=== PATIENT | male | born 1955 | race Caucasian/White ===

== ENCOUNTER 2016-08-17 11:32 | Emergency (ER) | payer BC, OTHER ==
[~2016-08-17] VITALS: Ht 167.6 cm; Wt 84.6 kg
[~2016-08-17 11:32] MED LIST: AMBIEN10 MG PO; CLOPIDOGREL75 MG PO; LIPITOR40 MG PO; LO-DOSE ASPIRIN81 M2 PO; NICOTINE PATCH1 EAC2 TD; NITROSTAT0.4 MG SL; PERCOCET 5/31 TABLET PO; XANAX0.25 MG PO
[2016-08-17 12:11] LABS: MCH 34.4 PG (29.0-34.0); MCHC 35.9 G/DL (30.0-36.0); MCV 95.9 FL (86-99); MEAN PLAT.VOLUME 10.8 uM^3 (9.0-12.4); PLATELET COUNT 145 K/uL (156-360); RBC DIS.WIDTH-CV 12.8 % (11.8-14.6); RBC DIS.WIDTH-SD 43.2 % (39-53); RED BLOOD COUNT 4.59 M/uL (4.00-5.50); WHITE BLOOD COUNT 5.7 K/uL (4.1-10.2)
[2016-08-17 12:22] LABS: CHLORIDE 108 mEq/L (99-109); POTASSIUM 4.1 mEq/L (3.7-5.4); SODIUM 142 mEq/L (136-147)
[2016-08-17 12:24] LABS: GLUCOSE 115 mg/dL (70-99)
[2016-08-17 12:25] LABS: ANION GAP 9 MEQ/L (2-14)
[2016-08-17 12:28] LABS: GFR ESTIMATE (CALCULATED) > 59 mL/min/
[2016-08-17 12:29] LABS: UREA NITROGEN (BUN) 20 mg/dL (9-23)
[2016-08-17 12:33] LABS: TROP-I INTERPRETATION NEGATIVE; TROPONIN-I 0.07 ng/mL (0.0-0.30)
[2016-08-17 14:59] VITALS: BP 128/67
== END 2016-08-17 15:01 | disposition home or self-care (01) ==
LOC: EME 11:32
DX: R07.9 Chest pain, unspecified (principal); Z53.20 Procedure and treatment not carried out because of patient's decision for unspecified reasons; E11.65 Type 2 diabetes mellitus with hyperglycemia; D69.6 Thrombocytopenia, unspecified; I10 Essential (primary) hypertension; J44.9 Chronic obstructive pulmonary disease, unspecified; J43.9 Emphysema, unspecified; I25.10 Atherosclerotic heart disease of native coronary artery without angina pectoris; F17.200 Nicotine dependence, unspecified, uncomplicated; Z79.82 Long term (current) use of aspirin; Z95.5 Presence of coronary angioplasty implant and graft; Z88.0 Allergy status to penicillin; Z88.1 Allergy status to other antibiotic agents
CPT/HCPCS: 71020; 80048; 84484; 85027; 93005; 99281; 99283

== ENCOUNTER 2017-10-07 11:57 | Inpatient (IN) | payer BC, OTHER ==
[~2017-10-07] VITALS: Ht 167.6 cm; Wt 85.2 kg
[2017-10-07 12:22] LABS: HEMATOCRIT 43.4 % (38.0-50.0); HEMOGLOBIN 15.5 G/DL (12.5-16.6); MCH 34.4 PG (29.0-34.0); MCHC 35.7 G/DL (30.0-36.0); MCV 96.2 FL (86-99); PLATELET COUNT 97 K/uL (156-360); RBC DIS.WIDTH-CV 12.7 % (11.8-14.6); RBC DIS.WIDTH-SD 45.4 % (39-53); RED BLOOD COUNT 4.51 M/uL (4.00-5.50); WHITE BLOOD COUNT 6.6 K/uL (4.1-10.2)
[2017-10-07 12:38] LABS: CHLORIDE 102 mEq/L (99-109); POTASSIUM 3.9 mEq/L (3.7-5.4); SODIUM 134 mEq/L (136-147)
[2017-10-07 12:40] LABS: GLUCOSE 113 mg/dL (70-99)
[2017-10-07 12:44] LABS: CREATININE 0.8 mg/dL (0.6-1.3); GFR ESTIMATE (CALCULATED) > 59 mL/min/ (58.99-99999)
[2017-10-07 12:45] LABS: UREA NITROGEN (BUN) 19 mg/dL (9-23)
[2017-10-07] MEDS ORDERED: PERCOCET 5/31 TABLET PO (15:22)
[2017-10-07] MEDS ORDERED: PAROXETINE HCL10 MG PO (15:23)
[2017-10-07] MEDS ORDERED: ZOLPIDEM TARTRA10 MG PO (15:23)
[2017-10-07] MEDS ORDERED: BUSPAR10 MG PO (15:23)
[2017-10-07] MEDS ORDERED: DUONEB 2.5-0.5 M3 ML AEROSOL (15:24)
[2017-10-07] MEDS ORDERED: IMDUR30 MG PO (15:24)
[2017-10-07 19:27] VITALS: BP 141/85
[2017-10-07 23:02] VITALS: BP 129/73
[2017-10-08 04:00] VITALS: BP 131/72
[2017-10-08 06:23] LABS: BASOPHIL (%) 0 % (0-1); EOSINOPHIL (%) 0 % (0-5); HEMATOCRIT 40.7 % (38.0-50.0); HEMOGLOBIN 13.9 G/DL (12.5-16.6); IMMATURE GRANULOCYTE (%) 0.6 % (0.0-0.7); LYMPHOCYTE (%) 11.9 % (15-42); LYMPHOCYTE COUNT 0.6 K/uL (1.0-2.8); MCH 33.1 PG (29.0-34.0); MCHC 34.2 G/DL (30.0-36.0); MCV 96.9 FL (86-99); MONOCYTE (%) 3.4 % (3-12); MONOCYTE COUNT 0.2 K/uL (0-0.8); NEUTROPHIL (%) 84.1 % (45-76); PLATELET COUNT 99 K/uL (156-360); RBC DIS.WIDTH-CV 12.7 % (11.8-14.6); RBC DIS.WIDTH-SD 45.7 % (39-53); WHITE BLOOD COUNT 4.7 K/uL (4.1-10.2)
[2017-10-08 06:40] LABS: CHLORIDE 105 MEQ/L (99-109); CREATININE 0.7 MG/DL (0.6-1.3); GFR ESTIMATE (CALCULATED) > 59 mL/min/ (58.99-99999); POTASSIUM 3.8 MEQ/L (3.7-5.4); SODIUM 140 MEQ/L (136-147); UREA NITROGEN (BUN) 20 mg/dL (9-23)
[2017-10-08 06:59] LABS: GLUCOSE 177 mg/dL (70-99)
[2017-10-08 07:44] VITALS: BP 142/67
[2017-10-08 11:34] VITALS: BP 130/68
[2017-10-08 16:08] VITALS: BP 127/67
[2017-10-08 19:15] VITALS: BP 138/77
[2017-10-08 22:51] VITALS: BP 125/63
[2017-10-09 03:45] VITALS: BP 131/63
[2017-10-09 06:27] LABS: BASOPHIL (%) 0.1 % (0-1); EOSINOPHIL (%) 0 % (0-5); HEMOGLOBIN 13.9 G/DL (12.5-16.6); IMMATURE GRANULOCYTE (%) 0.6 % (0.0-0.7); LYMPHOCYTE (%) 7.5 % (15-42); LYMPHOCYTE COUNT 0.7 K/uL (1.0-2.8); MCH 33.3 PG (29.0-34.0); MCHC 33.9 G/DL (30.0-36.0); MCV 98.1 FL (86-99); MONOCYTE (%) 6.1 % (3-12); MONOCYTE COUNT 0.6 K/uL (0-0.8); NEUTROPHIL (%) 85.7 % (45-76); NEUTROPHIL COUNT 7.8 K/uL (1.8-6.4); PLATELET COUNT 108 K/uL (156-360); RBC DIS.WIDTH-SD 47.3 % (39-53); RED BLOOD COUNT 4.18 M/uL (4.00-5.50); WHITE BLOOD COUNT 9.1 K/uL (4.1-10.2)
[2017-10-09 07:06] LABS: CHLORIDE 107 MEQ/L (99-109); CREATININE 0.7 MG/DL (0.6-1.3); GFR ESTIMATE (CALCULATED) > 59 mL/min/ (58.99-99999); GLUCOSE 176 mg/dL (70-99); POTASSIUM 3.9 MEQ/L (3.7-5.4); SODIUM 142 MEQ/L (136-147); UREA NITROGEN (BUN) 23 mg/dL (9-23)
== END 2017-10-09 08:46 | disposition left against medical advice (07) | DRG 190 ==
LOC: EME 11:57 → EDOF 13:43 → ENRESERV 14:08 → 5EAST 19:20
PROVIDERS: Family Medicine; Internal Medicine Pulmonary Disease
DX: J44.0 Chronic obstructive pulmonary disease with (acute) lower respiratory infection (principal); J18.9 Pneumonia, unspecified organism; J44.1 Chronic obstructive pulmonary disease with (acute) exacerbation; J20.9 Acute bronchitis, unspecified; E78.5 Hyperlipidemia, unspecified; I10 Essential (primary) hypertension; I25.10 Atherosclerotic heart disease of native coronary artery without angina pectoris; I73.9 Peripheral vascular disease, unspecified; K21.9 Gastro-esophageal reflux disease without esophagitis; F32.9 Major depressive disorder, single episode, unspecified; F41.9 Anxiety disorder, unspecified; E66.9 Obesity, unspecified; F17.200 Nicotine dependence, unspecified, uncomplicated; Z79.82 Long term (current) use of aspirin; Z95.5 Presence of coronary angioplasty implant and graft; I25.2 Old myocardial infarction; Z89.512 Acquired absence of left leg below knee; Z88.0 Allergy status to penicillin; Z68.30 Body mass index [BMI] 30.0-30.9, adult
CPT/HCPCS: 71046; 80048; 85025; 85027; 87040; 87070; 87205; 87449; 87502; 93005; 94640; 94640 76; 94760; 94799; 99202; 99281; 99285; J1650; J1956; J2930; J7030